=== PATIENT | male | born 1970 | race Two or more races ===

== ENCOUNTER 2024-11-29 13:45 | Emergency (ER) | payer MEDICAID, SELFPAY ==
[2024-11-29 13:46] VITALS: BMI 35.4
[2024-11-29 14:02] VITALS: BP 143/86; PULSE 71; RESP 12; TEMP 37; O2SAT 96
--- NOTE | 2024-11-29 14:04 | XR_ITS ---
Examination: CT abdomen and pelvis without contrast. Coronal 3-D reconstructions. Sagittal 2-D reconstructions. Date and time of exam:November 29, 2024 1542 hours Comparison March 29, 2020 MEDICATIONS: Right-sided flank pain today, history right ureteral stent placement CTDI: vol (mGy): 12.4 DLP: (mGycm): 780 Technique: Axial images of the abdomen have been obtained, 3 mm slice thickness Intravenous contrast material has not been administered. Low dose protocols were performed. One or more of the following dose reduction techniques were used; automated exposure control, adjustment of the mA and/or KV according to patient size, use of iterative reconstruction technique. Findings: Clinical history splenic lesions No gallstones No pancreatic or adrenal mass 2 mm right renal calculus 20 mm calculus in the right renal pelvis Right ureteral stent satisfactory position No ureteral calculi No bladder mass or bladder calculi No bowel obstruction No diverticulitis IMPRESSION: 20 mm calculus in the right renal pelvis Right ureteral stent satisfactory position with minimal right hydronephrosis
--- NOTE | 2024-11-29 14:08 | EDNOTE_ITS ---
ED Abdominal Pain RME/HPI General Chief Complaint: Abdominal Pain Stated complaint: RIGHT LOWER ABD PAIN, HX OF KIDNEY STONE Time seen by provider: 11/29/24 14:11 Arrival date/time: 11/29/24 13:45 RME / HPI RME / HPI narrative: This section includes all my notes and documentations, including HPI, PE, and ED course.? Jaime Nelson MD HPI: 54 year old male presents to the ED for 1-week history of right flank pain. States he was at [facility] from 11/12/2024 through 11/16/2024 for a 1.7cm right kidney stone and the urologist who planned to remove had abruptly left the hospital. Denies fevers, chills. No other associated symptoms or complaints. ROS: All negative except as documented in HPI. Physical Exam: General:? Alert and oriented.? No acute distress when remaining still. Eyes:? Conjunctivae and lids clear.?? ENT:? No nasal congestion.? Neck:? Supple.?? Heart:? RRR.? Lungs:? No respiratory distress.? Good air movement.? No rhonchi, wheezing, rales.?? Abdomen:? Soft and nontender.? Normal bowel sounds.? No distension.? No rebound or guarding.?? Back:? No CVA tenderness.?? Skin:? Warm and dry.?? Neuro:? Alert and oriented X 3. I reviewed all diagnostic test results: My review of the CT report is: 20 mm calculus in the right renal pelvis, right ureteral stent satisfactory position with minimal right hydronephrosis. Blood tests unremarkable. UA showed positive leukocyte Estrace, 199 RBC, and 17 WBC. At this point, diagnoses include: Right kidney stone. Treatment here included: Tamsulosin, Zofran, Toradol, Morphine, and IV fluids Significant improvement noted. Recommended a trial of outpatient treatment. Based on my best medical judgment, made decision no further evaluation or treatment indicated at this time.? Patient understands and agrees to the discharge instructions customized and printed, see below. Discharge Instructions from Dr. Nelson: --Your symptoms are due to a right kidney stone.? --Increase oral fluid to flush your kidneys.? Maintain clear urine. if it's dark or yellow then increase oral fluid.? If you don't do this, you won't pass it.? --Take Flomax to help decrease spasms to increase the chance of passing it.? --Take Zofran as needed for nausea or vomiting. --Take Ketorolac/Toradol for pain control.? And Tylenol with Codeine.? If you are in severe pain, you won't pass it.?? --Strain your urine so you can catch the stone when you pass it.? --See a private doctor on 11/30/2024 for recheck and further care. Ask to review all test results and official radiology reports, to make sure you receive all necessary follow-ups and monitoring. Take the stone with you for analysis because certain stones can be prevented.? If you didn't pass it, ask for referral to see urologist.? Who will take the stone out for you. Dr. Givens is Urologist in [facility] who see outpatients infrequently, his office phone number is [phone]. --Seek immediate medical care with fever over 100.4, persistent vomiting despite Zofran, intolerable pain, or with any concerns.?? Instrucciones de edwige del Dr. Nelson: --[place]aya s?ntomas se deben a un c?lculo renal derecho. --Aumente la ingesta de l?quidos por v?a oral para limpiar los ri?ones. Mantenga la orina reyna. Si es oscura o amarilla, aumente la ingesta de l?quidos por v?a oral. Si no lo hace, no podr? evacuarla. --Los Lunas Flomax para ayudar a disminuir los espasmos y aumentar la probabilidad de evacuarla. --Los Lunas Zofran seg?n sea necesario para las n?useas o los v?mitos. --Los Lunas Ketorolaco/Toradol para controlar el dolor. Y Tylenol con code?na. Si tiene dolor intenso, no podr? evacuarla. --Cuela la orina para que pueda atrapar el c?lculo al evacuarlo. --Consulte con un m?dico particular el 30/11/2024 para sue nueva revisi?n y atenci?n adicional. Solicite revisar todos los resultados de las pruebas y los informes radiol?gicos oficiales para asegurarse de recibir todos los seguimientos y monitoreo necesarios. Lleve el c?lculo para que lo analicen, ya que algunos c?lculos se pueden prevenir. Si no lo expuls?, solicite sue derivaci?n a un ur?logo. ?l le extraer? el c?lculo. El Dr. Givens es un ur?logo de la ciudad que atiende pacientes ambulatorios con poca frecuencia. El n?yahaira de tel?fono de roth consultorio es [phone]. --Busque atenci?n m?dica inmediata si tiene fiebre superior a 38 ?C, v?mitos persistentes a pesar del Zofran, dolor insoportable o cualquier otra inquietud. Jaime Nelson MD Related Data Previous Rx's ?Medication ?Instructions ?Recorded tamsulosin 0.4 mg capsule (Flomax) 0.4 mg PO .qhs #30 caps 08/13/18 acetaminophen 300 mg-codeine 30 mg 2 tab PO Q8H PRN pa in #20 tabs 11/29/24 tablet ketorolac 10 mg tablet 10 mg PO Q8H PRN pain 5 days #10 11/29/24 tabs ondansetron 4 mg disintegrating 4 mg PO TID PRN nausea and 11/29/24 tablet vomiting 30 days #10 tabs tamsulosin 0.4 mg capsule (Flomax) 0.4 mg PO QDAY 7 da ys #7 caps 11/29/24 Allergies Allergy/AdvReac Type Severity Reaction Status Date / Time No Known Allergies Allergy Verified 11/29/24 13:49 Review of Systems Review of Systems Systems Reviewed: All systems reviewed, normal except as documented Past Medical History Past Medical History CARDIAC: Negative Cardiac Disorders or Congestive Heart Failure RESPIRATORY: Negative Chronic Obstructive Pulmonary Disease (COPD) or Asthma GENITOURINARY: Positive Kidney Stones; Negative Renal Disease ENDOCRINE: Negative Diabetes Mellitus Type 1 or Diabetes Mellitus Type 2 HEMATOLOGIC: Negative Sickle Cell Disease Social History SMOKING STATUS: Former smoker ED Exam Narrative Physical exam: As noted in HPI Course Quality Measures none Orders Category Date Time Status Miscellaneous Nursing Order NOW Care 11/29/24 17:21 Completed Saline [Insert IV] NOW Care 11/29/24 14:[address] abdomen pelvis wo con Stat Exams 11/29/24 14:04 Completed Bilirubin,Direct Stat Lab 11/29/24 14:24 Completed CBC Stat Lab 11/29/24 14:24 Completed CMP [Comprehensive Metabolic Panel] Stat Lab 11/29/24 14:24 Completed Magnesium Stat Lab 11/29/24 14:24 Completed UA, C/S IF [Urinalysis, C/S if Indicated] Stat Lab 11/29/24 16:53 Completed Urine Culture Stat Lab 11/29/24 16:53 Received Ketorolac Inj [Toradol Inj] Med 11/29/24 14:04 Discontinued 30 mg IVP X1 ONE Morphine Inj Med 11/29/24 14:04 Discontinued 4 mg IVP X1 ONE Ondansetron Inj [Zofran Inj] Med 11/29/24 14:04 Discontinued 4 mg IVP X1 ONE Sodium Chloride 0.9% 1000 ml [Ns] 1,000 ml Med 11/29/24 14:04 Discontinued IV 999 mls/hr Tamsulosin HCl [Flomax] Med 11/29/24 17:12 Discontinued 0.4 mg PO X1 ONE Vital Signs Vital signs: Vital Signs Temperature 98.6 F 11/29/24 14:02 Pulse Rate 71 11/29/24 14:02 Respiratory Rate 12 11/29/24 14:02 Blood Pressure 143/86 H 11/29/24 14:02 Pulse Oximetry (%) 96 11/29/24 14:02 Oxygen Delivery Method Room Air 11/29/24 14:02 Abdominal Pain MDM MDM Narrative MDM Narrative:: Heydi Joiner am scribing for and in the presence of Dr. Nelson. Patient data External records reviewed:: None (No previous records for review ) Clinical information provided by:: patient Social determinants that could affect healthcare access:: none Patient has the following chronic illnesses:: Kidney stone How is presenting disease/condition affected by chronic disease/condition?: exacerbated by Evaluation data The following diagnostics were reviewed and interpreted by me:: lab results and radiology exam(s) Lab and/or radiology exams considered but not ordered:: None Interpretation Summary: I reviewed all diagnostic test results: My review of the CT report is: 20 mm calculus in the right renal pelvis, right ureteral stent satisfactory position with minimal right hydronephrosis. Blood tests unremarkable. UA showed positive leukocyte Estrace, 199 RBC, and 17 WBC. Medications / Prescriptions Medications or Prescriptions considered but not ordered:: None Medication administrations:: Medication Administration History Discontinued Medications Sodium Chloride (Ns) 1,000 mls @ 999 mls/hr IV .Q1H1M ONE Stop: 11/29/24 15:04 Last Infusion: 11/29/24 15:56 Dose: Infused Documented By: Admin: 11/29/24 14:45 Dose: 999 mls/hr Documented By: RENETTA Ketorolac Tromethamine (Ketorolac Inj 30 Mg/Ml Vial) 30 mg IVP X1 ONE Stop: 11/29/24 14:05 Last Admin: 11/29/24 14:47 Dose: 30 mg Documented By: RENETTA Morphine Sulfate (Morphine Sulf Inj 10 Mg/Ml Vial) 4 mg IVP X1 ONE Stop: 11/29/24 14:05 Last Admin: 11/29/24 14:48 Dose: 4 mg Documented By: RENETTA Ondansetron HCl (Ondansetron Inj 2 Mg/Ml Inj 2 Ml) 4 mg IVP X1 ONE; Protocol Stop: 11/29/24 14:05 Last Admin: 11/29/24 14:46 Dose: 4 mg Documented By: RENETTA Tamsulosin HCl (Tamsulosin Hcl 0.4 Mg Capsule) 0.4 mg PO X1 ONE Stop: 11/29/24 17:13 Last Admin: 11/29/24 17:58 Dose: 0.4 mg Documented By: AGGIE Treatment here included: Tamsulosin, Zofran, Toradol, Morphine, and IV fluids Consultations Consultation(s) initiated? (list below): No Diagnosis Differential diagnosis abdominal pain: abdominal pain, calculus of kidney, constipation, diverticulitis, gastroenteritis, pancreatitis and small bowel obstruction Most likely diagnosis given after review of the tests above:: Right kidney stone Admission Indicated Admission indicated?: not indicated Explain why admission is indicated or not indicated:: With significant improvement, there was no indication for admission. Admission Request Was there a request for admission?: No Disposition Plan Disposition Plan: Discharge Discharge Attestation Discharge Attestation: The patient and all family members were given an opportunity to ask questions a nd understood the discharge instructions. Discharge instructions specifically effects, indications for sooner follow up or return to the emergency department, and the expected course of current diagnosis. Patient condition: Stable Discharge Plan Plan Patient Disposition: HOME (Self Care) Prescriptions/Referrals Prescriptions/Med Rec: New acetaminophen-codeine 300-30 mg tablet 2 tab PO Q8H MDD 6 PRN (Reason: pain) Qty: 20 0RF ketorolac 10 mg tablet 10 mg PO Q8H PRN (Reason: pain) 5 Days Qty: 10 0RF tamsulosin [Flomax] 0.4 mg capsule 0.4 mg PO QDAY 7 Days Qty: 7 0RF ondansetron 4 mg tablet,disintegrating 4 mg PO TID PRN (Reason: nausea and vomiting) 30 Days Qty: 10 0RF No Action tamsulosin [Flomax] 0.4 mg capsule 0.4 mg PO .qhs Qty: 30 0RF Referrals: No Primary/Family,Physician [Primary Care Provider] - In 1 week Problem List Clinical Impression: Right kidney stone Patient/Caregiver Discharge Instructions Discharge Activity: activity as tolerated Education Materials: ED Kidney Stone w/ Colic Additional Instructions: Discharge Instructions from Dr. Nelson: --Your symptoms are due to a right kidney stone.? --Increase oral fluid to flush your kidneys.? Maintain clear urine. if it's dark or yellow then increase oral fluid.? If you don't do this, you won't pass it.? --Take Flomax to help decrease spasms to increase the chance of passing it.? --Take Zofran as needed for nausea or vomiting. --Take Ketorolac/Toradol for pain control.? And Tylenol with Codeine.? If you are in severe pain, you won't pass it.?? --Strain your urine so you can catch the stone when you pass it.? --See a private doctor on 11/30/2024 for recheck and further care. Ask to review all test results and official radiology reports, to make sure you receive all necessary follow-ups and monitoring. Take the stone with you for analysis because certain stones can be prevented.? If you didn't pass it, ask for referral to see urologist.? Who will take the stone out for you. Dr. Givens is Urologist in [facility] who see outpatients infrequently, his office phone number is [phone]. --Seek immediate medical care with fever over 100.4, persistent vomiting despite Zofran, intolerable pain, or with any concerns.?? Instrucciones de edwige del Dr. Nelson: --[place] s?ntomas se deben a un c?lculo renal derecho. --Aumente la ingesta de l?quidos por v?a oral para limpiar los ri?ones. Mantenga la orina reyna. Si es oscura o amarilla, aumente la ingesta de l?quidos por v?a oral. Si no lo hace, no podr? evacuarla. --Los Lunas Flomax para ayudar a disminuir los espasmos y aumentar la probabilidad de evacuarla. --Los Lun[place] Zofran seg?n sea necesario para las n?useas o los v?mitos. --Los Lun[place] Ketorolaco/Toradol para controlar el dolor. Y Tylenol con code?na. Si tiene dolor intenso, no podr? evacuarla. --Cuela la orina para que pueda atrapar el c?lculo al evacuarlo. --Consulte con un m?dico particular el 30/11/2024 para sue nueva revisi?n y atenci?n adicional. Solicite revisar todos los resultados de las pruebas y los informes radiol?gicos oficiales para asegurarse de recibir todos los seguimientos y monitoreo necesarios. Lleve el c?lculo para que lo analicen, ya que algunos c?lculos se pueden prevenir. Si no lo expuls?, solicite sue derivaci?n a un ur?logo. ?l le extraer? el c?lculo. El Dr. Givens es un ur?logo de la ciudad que atiende pacientes ambulatorios con poca frecuencia. El n?yahaira de tel?fono de roth consultorio es [phone]. --Busque atenci?n m?dica inmediata si tiene fiebre superior a 38 ?C, v?mitos persistentes a pesar del Zofran, dolor insoportable o cualquier otra inquietud. Print Language: Wolof Stand Alone Forms: Ana Award Info., Patient Portal Info Letter
[2024-11-29 14:36] LABS: Basophils % (Auto) 0 % (0-2.5); Eosinophils # (Auto) 0.3 Thou/mm3 (0.0-0.5); Eosinophils % (Auto) 3 % (0-10); Hematocrit 43.1 % (41.0-53.0); Immature Granulocytes % (Auto) 1 % (0-0); Immature Granulocytes Auto 0.06 Thou/mm3 (0.00-0.00); Lymphocytes # (Auto) 2.7 Thou/mm3 (1.0-4.8); Lymphocytes % (Auto) 26 % (10-50); Mean Corpuscular HGB Conc 34.8 g/dl (31.0-37.0); Mean Corpuscular Hemoglobin 27.8 pg (25.0-35.0); Mean Corpuscular Volume 80 fL (80-100); Monocytes # (Auto) 0.7 Thou/mm3 (0.0-0.8); Monocytes % (Auto) 7 % (0-12); Neutrophils # (Auto) 6.7 Thou/mm3 (1.8-7.7); Neutrophils % (Auto) 64 % (37-80); Nucleated Red Blood Cell % 0 /100 WBC (0); Platelet Count 267 Thou/mm3 (140-440); RDW Standard Deviation 39.2 fL (35.1-43.9); White Blood Count 10.5 Thou/mm3 (3.8-10.6)
[2024-11-29] MEDS: SODIUM CHLORIDE 0.9% 1000 ML 1,000 ML 999 ML IV (14:45)
[2024-11-29] MEDS: ONDANSETRON INJ 2 MG/ML INJ 2 ML 4 MG IVP (14:46)
[2024-11-29] MEDS: KETOROLAC INJ 30 MG/ML VIAL IVP (14:47)
[2024-11-29] MEDS: MORPHINE SULF INJ 10 MG/ML VIAL 4 MG IVP (14:48)
[2024-11-29 14:54] LABS: Alanine Aminotransferase 22 U/L (10-49); Albumin, Serum 4.1 gm/dL (3.5-5.0); Albumin/Globulin Ratio 1.9 (1.2-2.2); Alkaline Phosphatase 107 U/L (46-116); Anion Gap 6 (7-16); Aspartate Amino Transferase 17 U/L (0-34); BUN/Creatinine Ratio 10 Ratio (12-20); Bilirubin,Total 0.3 mg/dL (0.3-1.2); Blood Urea Nitrogen 8 mg/dL (9-23); Chloride 105 mMol/L (98-107); Creatinine (Component) 0.8 mg/dL (0.6-1.3); Estimated Creatinine Clearance 120.4 mL/min (>60); Globulin 2.2 gm/dL (2.3-3.5); Glucose 135 mg/dL (74-106); Magnesium 1.8 mg/dL (1.6-2.6); Osmolality,Calculated 277 (275-295); Potassium 3.9 mMol/L (3.4-5.1); Sodium 139 mMol/L (136-145); Total Protein 6.3 gm/dL (5.7-8.2); eGFR > 60 See Note
[2024-11-29 15:13] LABS: Bilirubin,Direct < 0.1 mg/dL (0.0-0.3)
[2024-11-29 16:59] LABS: Collection Type, Urine Clean Catch; Squamous Epithelial Cell,Urine 0 /hpf (0-5)
--- NOTE | 2024-11-29 17:11 | PRELIM_ITS ---
CT scan of the abdomen and pelvis without intravenous contrast (axial sections with sagittal, coronal and 3D reformats) November 29, 2024 at 1542 hours Clinical History: Right flank pain. Comparison: Reference is made to the prior report dated March 29, 2020. Findings: Bibasilar atelectasis is seen. There is moderate right hydronephrosis with perinephric fat stranding. There is 1.8 x 1.6 cm calculus in the right renal pelvis. There are punctate (1-2 mm) nonobstructing right renal calculi. There is a right ureteric stent with its distal end coiled in the urinary bladder. No evidence of calcified gallstones. The liver, pancreas, spleen and adrenals are unremarkable on this noncontrast study. No evidence of bowel obstruction. The appendix is not visualized. The urinary bladder is otherwise unremarkable. There is no free fluid or free air. Degenerative changes are identified in the spine. Impression: 1. Moderate right hydronephrosis with right ureteric stent as described, the possibility of stent malfunction cannot be excluded. Recommend clinical correlation. 2. Right renal calculi as described. 3. Other findings as described above. Discussion Details: Results verbally communicated to : Dr. Nelson at 05:00 PM 11/29/2024 Report Electronically Signed By: Cathy Brownlee 11/29/2024 5:10:55 PM [EST]
[2024-11-29 17:21] LABS: Bilirubin,Urine Negative (Negative); Blood,Urine 3+ (Negative); Color,Urine Lt-Yellow (Lt Yel-Yel); Glucose, Urine Negative (Negative); Ketones,Urine Negative (Negative); Leukocyte Esterase,Urine Positive (Negative); Nitrite,Urine Negative (Negative); Protein,Urine 1+ (Neg - Trace); RBC,Urine 199 /hpf (0-3); Specific Gravity,Urine 1.012 (1.001-1.035); Urobilinogen,Urine Negative mg/dL (0.0-1.0); WBC,Urine 17 /hpf (0-5)
[2024-11-29 17:26] LABS: Culture Indicated,Urine Yes
[2024-11-29 17:27] LABS: Clarity,Urine Hazy (Clear/Hazy)
[2024-11-29] MEDS: TAMSULOSIN HCL 0.4 MG CAPSULE PO (17:58)
[2024-11-29 18:05] VITALS: BP 138/72; PULSE 70; RESP 14; TEMP 36.9; O2SAT 97
== END 2024-11-29 18:07 | disposition home or self-care (01) ==
PROVIDERS: Emergency Provider Emergency Medicine
DX: N13.2 Hydronephrosis with renal and ureteral calculous obstruction (principal)
CPT/HCPCS: 36415; 74176; 80053; 81001; 82248; 83735; 85025; 87086; 96361; 96374; 96375; 99284; J1885; J2270; J2405; J7030; A9270

== ENCOUNTER → 2024-12-21 | Outpatient (CLI) | payer MEDICAID, SELFPAY ==
--- NOTE | 2024-12-21 | XR_ITS ---
Examination: Abdomen AP single view Technique: AP portable supine abdomen, single view Exam date and time: December 21, 2024 1224 hours INDICATIONS: History placement right ureteral stent November 16, 2024 FINDINGS: Right ureteral stent in adequate position 19 mm calculus medial right kidney and 20 mm calculus lower pole right kidney Nonobstructive bowel gas pattern IMPRESSION: Right ureteral stent adequate position
== END | disposition home or self-care (01) ==
PROVIDERS: PCP Nurse Practitioner Family; Referring Provider Surgery; Visit Provider Surgery
DX: N20.0 Calculus of kidney (principal)
CPT/HCPCS: 74018

== ENCOUNTER → 2025-03-12 | Outpatient (CLI) | payer MEDICAID, SELFPAY ==
--- NOTE | 2025-03-12 14:01 | XR_ITS ---
Examination: Abdomen AP single view Technique: AP portable supine abdomen, single view Exam date and time: March 12, 2025, 1400 hours, comparison December 21, 2024 INDICATIONS: History right kidney stones post stent placement FINDINGS: Right ureteral stent satisfactory position Numerous calculi in the mid and lower right kidney No left renal calculi IMPRESSION: Right ureteral stent satisfactory position
== END | disposition home or self-care (01) ==
PROVIDERS: PCP Surgery; Referring Provider Surgery; Visit Provider Surgery
DX: N20.0 Calculus of kidney (principal)
CPT/HCPCS: 74018